=== PATIENT | male | born 1950 | race Caucasian/White ===

== ENCOUNTER 2016-12-08 05:57 | Inpatient (IN) | payer MEDICARE, BC ==
--- NOTE | ~2016-12-08 | OP ---
Record Of Operation [facility] [address] [place]. [address] NAME: DOLORES CALIXTO : 46 STATUS : ADM IN PAT#: [id number] AGE: 66 ADM/REG DATE : 12/08/16 MR#: [id number] REPORT SERV DATE: 12/08/16 DICTATED BY: RICK ARTEAGA DATE: 12/08/16 REPORT STATUS : Draft TRANSCRIBED BY: MODL DATE: 12/08/16 DATE OF PROCEDURE: 12/08/2016 PREOPERATIVE DIAGNOSIS: High-grade left carotid stenosis. POSTOPERATIVE DIAGNOSIS: High-grade left carotid stenosis. PROCEDURE: Left carotid endarterectomy. FELLOW: Koko. ANESTHESIA: General. COMPLICATIONS: Poor end point requiring on-table arteriogram and covered stent placement. BLOOD LOSS: 250. HISTORY: The patient is a 66-year-old male with high-grade left carotid stenosis. It was felt he would benefit from carotid endarterectomy. This was discussed in detail with the patient and , they expressed understanding and desired to proceed with the above procedure. DESCRIPTION OF PROCEDURE: The patient was taken to the operating room and placed in the supine position. He was given general anesthesia without complication, roll was placed under shoulders, head was turned to the right. His neck and chest were prepped and draped in sterile fashion. Incision was created on the anterior border sternocleidomastoid muscle taking care to be more than one fingerbreadth away from the angle of the mandible. Bovie cautery was used to dissect through subcutaneous tissue and platysma. Continued dissection was performed to identify the sternocleidomastoid muscle. Dissection was continued on the anterior border of it. The dissection was continued to identify the internal jugular vein. Dissection was continued on the anterior border of it. The common facial vein and branches were identified, freed circumferentially, ligated with silk ties, and divided. The vagus nerve was identified and preserved. The common carotid artery was identified, freed circumferentially, and isolated with a vessel loop. The patient was given 6000 units of heparin intravenously. Received another 2000 units every 45 minutes. Dissection was continued on the internal carotid artery beyond the area of disease. This was freed circumferentially and isolated with a vessel loop. The hypoglossal nerve was identified and preserved. Dissection was performed to the external carotid artery, which was freed circumferentially and isolated with a vessel loop. The superior thyroid artery was identified, and isolated with a vessel loop as well. After more than 3 minutes of heparinization, the internal carotid artery was controlled with a vessel loop followed by the common carotid artery and external carotid artery. An 11 blade was used to create an arteriotomy on the common carotid artery. This extended longitudinally onto the internal carotid artery. A 12 shunt was placed into the internal carotid artery once good backbleeding was noted, it was placed in the common carotid artery restoring flow to the brain. There was excessive backbleeding requiring placement of a shunt clamp. Record Of Operation [facility] [address] [place]. [address] NAME: DOLORES CALIXTO : 48 STATUS : ADM IN PAT#: [id number] AGE: 66 ADM/REG DATE : 12/08/16 MR#: [id number] REPORT SERV DATE: 12/08/16 DICTATED BY: RICK ARTEAGA DATE: 12/08/16 REPORT STATUS : Draft TRANSCRIBED BY: MODL DATE: 12/08/16 Endarterectomy was begun in a standard fashion with feathering of the proximal endpoint and eversion endarterectomy on the external carotid artery. Attempts were made to feather the endpoint on the internal carotid artery distally, however, the plaque was friable. This required dissection distally on the internal carotid artery multiple times in multiple extensions of the arteriotomy. In order to better visualization, the incision was extended and dissection performed to identify the digastric muscle. This was divided carefully by observing the hypoglossal nerve throughout its dissection to avoid injury. Even with this continued distal dissection, the endpoint on the internal could not be achieved. It was felt placement of a stent here would allow tacking down of the distal endpoint and then closure could be completed. A 5 x 50 Viabahn was placed in the distal portion and deployed, however, it was difficult to get adequate purchase and became dislodged. Of note, prior to this, part of the shunt had to be removed in order to get adequate access and the distal artery was controlled with a vascular clamp. When this was not successful, it was felt the next best option would be an end-to-end anastomosis with transposition of the external carotid artery. The external carotid artery was dissected distally, branches were ligated with silk ties and divided. It was then brought over to the internal carotid artery and beveled. Multiple attempts were made to sew the external carotid to the internal carotid artery, but due to the location as well as the extreme friability of the artery, this was not successful either. At this point, it was felt that another attempt at stent placement would be the best option. With the internal carotid artery clamped, the artery was accessed distal to the clamp with a micropuncture needle, wire passed easily. The needle was removed. Micropuncture dilator was placed. Arteriogram shows a patent internal carotid artery filling the intracranial carotid artery and branch vessels without evidence of thrombus or occlusion. There was a dissection in the more proximal internal carotid artery. A V18 wire was able to be passed proximally and a TrailBlazer catheter passed over it. Arteriogram was performed showing this to be within the true lumen of the artery and not within the dissection. The V18 wire was then replaced, 6-Kazakh sheath was placed, and a 5 x 100 Viabahn stent was then placed just beneath the curvature of the artery and deployed here without difficulty. There was good backbleeding from the covered stent, which was clamped with a profunda clamp. Attention was turned to the common carotid artery, which was controlled with a vascular clamp as well. This stent was then sewn end-to-end to the common carotid artery with running 6-0 Prolene suture. Prior to completion, the micropuncture catheter was placed at the anastomosis and arteriogram performed showing the stent to be widely patent to the distal portion and the distal endpoint was patent with good flow into the brain. There is an area of residual dissection, but no evidence of extravasation or thrombus. This was felt to be adequate result. The closure was completed after the internal carotid artery was back bled. The common carotid artery was flushed. The stent was copiously irrigated. Upon completion with flow restored, bleeding points were controlled with additional Prolene sutures. Doppler confirmed a normal internal carotid artery signal. The patient was given protamine to help with hemostasis and Fibrillar was placed over the artery as well. After approximately 10 minutes, hemostasis was felt to be adequate. Portions of the residual common carotid artery and internal carotid artery were then used to cover the majority of the stent at the incision portion of the wound with a running 5-0 Prolene suture. Once hemostasis was then assured, the incision was closed in a standard fashion with running 2-0 Vicryl deep and platysmal suture. The skin was closed with 4-0 Monocryl suture and Dermabond dressing applied. The patient tolerated the procedure well. Plan will be extubation in the operating room and if the patient is Record Of Operation [address] [place]. [address] NAME: DOLORES CALIXTO : 46 STATUS : ADM IN [facility]#: [id number] AGE: 66 ADM/REG DATE : 12/08/16 MR#: [id number] REPORT SERV DATE: 12/08/16 DICTATED BY: RICK ARTEAGA DATE: 12/08/16 REPORT STATUS : Draft TRANSCRIBED BY: MODMigel DATE: 12/08/16 neurologically intact, taken to recovery for continued care. CSJ/BRETT Rick Arteaga M.D. / [id number] CC: Rick Arteaga M.D.
--- NOTE | ~2016-12-08 | PUL ---
[id number] [place]. [address] NAME: DOLORES CALIXTO : 48 STATUS : ADM IN [facility]#: [id number] AGE: 66 ADM/REG DATE : 12/08/16 MR#: [id number] REPORT SERV DATE: 12/13/16 DICTATED BY: MONIQUE DUEÑAS DATE: 12/13/16 REPORT STATUS : Draft TRANSCRIBED BY: MODL DATE: 12/13/16 PULMONARY FUNCTION TEST Overnight Oximetry Report START DATE OF TESTIN12/12/2016 END DATE OF TESTIN12/13/2016 COMMENTS: Testing was conducted with the patient breathing room air. RESULTS: 1. Total valid sampling time 6 hours 18 minutes and 14 seconds. 2. Total time with an oxygen saturation less than 88%, 2 minutes and 4 seconds. 3. Total time with an oxygen saturation less than 90%, 5 minutes and 2 seconds. 4. Oxygen desaturation event index 22.5. IMPRESSION: There was no significant desaturation during this study conducted while the patient was breathing room air. Though the oxygen saturation remained above 88% for the most of the test, the oxygen desaturation event index was elevated suggestive of possible obstructive sleep apnea. Recommend formal sleep study to confirm if clinically indicated. PS/BRETT Monique Dueñas M.D. / [id number] CC: Roz Belle MD
--- NOTE | ~2016-12-08 | DS ---
Discharge Summary [facility] [address] [place]. [address] NAME: DOLORES CALIXTO : 46 STATUS : DIS IN PAT#: [id number] AGE: 66 ADM/REG DATE : 12/08/16 MR#: [id number] REPORT SERV DATE: 12/25/16 DICTATED BY: RICK ARTEAGA DATE: 12/24/16 REPORT STATUS : Draft TRANSCRIBED BY: MODMigel DATE: 12/24/16 Data Collection from hospitalization DISCHARGE DIAGNOSES: 1. High-grade left carotid stenosis, status post left carotid endarterectomy. 2. Cerebrovascular accident. 3. Paroxysmal atrial fibrillation. 4. Hypertension. 5. Former tobacco use. 6. History of colon cancer. CONSULTATIONS: 1. Dr. Makenna Garcia. 2. Dr. Kaley Hester. PROCEDURES PERFORMED: 1. Left carotid endarterectomy, 12/08/2016. 2. CT scan of the brain without contrast, 12/08/2016. 3. CTA of the neck/brain, 12/08/2016. 4. MRI of the brain with and without contrast and of the head without contrast, 12/09/2016. 5. Modified barium swallow study, 12/10/2016. 6. CT scan of the brain without contrast, 12/11/2016. 7. EEG dated 12/08/2016. PATHOLOGY: Artery, segment of left carotid artery - luminal narrowing secondary to atherosclerotic plaque; lymph node excision, left jugular chain (2) - benign lymph nodes with focal follicular hyperplasia. DISCHARGE MEDICATIONS: Cordarone 200 mg daily, Eliquis 5 mg twice a day, aspirin 81 mg daily, Plavix 75 mg daily, Advil 200 mg every four hours as needed, Prinivil 10 mg daily, MiraLAX powder one packet twice a day, Crestor 10 mg daily. CONDITION AT DISCHARGE: Stable. DISPOSITION: The patient was discharged home on a regular diet with activities as instructed. He would follow up with Dr. Makenna Garcia in three to four weeks following discharge. HOSPITAL COURSE: This is a 66-year-old man who has high-grade left carotid stenosis. It was felt that he would benefit from carotid endarterectomy. Treatment options were discussed and it was elected to proceed with surgical intervention. He was admitted to the hospital at this time for further evaluation and treatment. Upon admission, the patient was taken to the operating room where he underwent the above- mentioned procedures. He tolerated this well. There were no complications. Postoperatively, in the recovery room, it was noted by the nursing staff that the patient Discharge Summary [facility] [address] [place]. [address] NAME: DOLORES CALIXTO : 48 STATUS : DIS IN PAT#: [id number] AGE: 66 ADM/REG DATE : 12/08/16 MR#: [id number] REPORT SERV DATE: 12/25/16 DICTATED BY: RICK ARTEAGA DATE: 12/24/16 REPORT STATUS : Draft TRANSCRIBED BY: MODL DATE: 12/24/16 was not moving his right arm, he had some difficulty with his speech. Code stroke was called. The patient was taken for an emergent CT scan of the head which showed no evidence of acute changes. CTA of the head and neck showed evidence of carotid endarterectomy with 10 cm shunt which was placed above the area of stenosis extending from bifurcation upward. The appeared to be patent. No blockages were observed. Some vascular abnormality was noted in the right A1 segment with possible occlusion and absence of the posterior communicating artery. He was seen by Dr. Kaley Hester. The patient had fluctuating speech with possible expressive aphasia. His impression included transient ischemic attack versus CVA. The patient had fluctuating neurological deficits, crescendo impending stroke. It was recommended that blood pressure be maintained above 160 systolic and this is the pressure that appears to be at least minimal to maintain cerebral perfusion and improve the patient's neurological deficit. At blood pressure 180, the patient was able to raise his arm above his head and was conversing. We would follow stroke orders. Emergent EEG was performed to capture any subtle changes that were not detected on the CT. The patient does have asymmetry with mild increased intermittent slowing and sharp activity in the left anterior temporal region, intermittent bilaterally synchronous slowing was seen most likely secondary to drowsiness. The patient currently appeared to be alert, however, did have some difficulty swallowing. The following day, he still had some difficulty swallowing, but was not aspirating. His incisions were clean, dry, and intact. There was some left tongue deviation. He had complained of dysphagia and cough when swallowing. Plavix was being provided. Lipitor was increased. We would keep systolic blood pressure greater than 130 mmHg. Fasting lipid panel and hemoglobin A1c were going to be checked. MRI of the brain with and without contrast and of the head without contrast was performed. On 12/10/2016, a modified barium swallow study was performed. He had minimal left neck pain at the surgical site. He denied any visual or hearing deficits, weakness, or numbness. His biggest complaint was a dry mouth and difficulty swallowing and difficulty clearing his throat. Echocardiogram was negative. Ejection fraction was 60%. Plavix and statin were continued. The patient was being held n.p.o. The modified barium swallow study was reviewed. He was evaluated by Physical Therapy. The next day, he still had some swallowing complaints. The patient had persistent dysphagia. He was seen by Dr. Makenna Garcia regarding postop atrial fibrillation with rapid ventricular response in the setting of CVA. The patient did not have any chest pain or shortness of breath. He had a coughing episode and it was suspected that he may have aspirated when he coughed within minutes prior to the arrival of Dr. Garcia. He had not had any prior history of atrial fibrillation that he was aware of. It was felt that this was new onset paroxysmal atrial fibrillation. Telemetry was now demonstrating sinus rhythm. Aspirin was decreased. Plavix was continued. He felt if it was safe from a surgical standpoint that Eliquis should be started for primary stroke prevention. Amiodarone drip would be continued for 24 hours and then he would be changed to oral amiodarone. Lisinopril was continued as well as high-intensity statin therapy. A CT scan of the brain without contrast was performed. There was evidence for a subacute nonhemorrhagic infarction in the left occipital region by CT. On 12/12/2016, he had had aspiration overnight while supine. He still had difficulty swallowing. The head of his bed was kept elevated. His T-max was 99.2. Oral amiodarone continued. He had been placed on Eliquis. He remained in a sinus rhythm. The patient was educated about positioning when sleeping as he reports that he wakes up coughing. The next day, discharge planning was Discharge Summary [address] [place]. [address] NAME: DOLORES CALIXTO : 46 STATUS : DIS IN PAT#: [id number] AGE: 66 ADM/REG DATE : 12/08/16 MR#: [id number] REPORT SERV DATE: 12/25/16 DICTATED BY: RICK ARTEAGA DATE: 12/24/16 REPORT STATUS : Draft TRANSCRIBED BY: MODL DATE: 12/24/16 performed. Heart rate had improved on amiodarone, aspirin, Plavix, and Eliquis. Lipitor was continued. On 12/14/2016, he had had some nosebleed. His dysphagia remained stable. Aspirin was stopped. He seemed to be feeling better. He was eating better. He was passing flatus. Discharge instructions were given. Due to his improved and stable condition, he was discharged home with the above-stated instructions. Information collected by: Gia Eduardo I submit the above information as my discharge summary. TG/MODL Rick Arteaga M.D. / [id number] CC: Roz Belle MD Roza K. Adamczyk, MD Lisa Gail Carkner, M.D.
--- NOTE | ~2016-12-08 | CN ---
Consultation Report [facility] [address] [place]. [address] NAME: DOLORES CALIXTO : 46 STATUS : ADM IN [facility]#: [id number] AGE: 66 ADM/REG DATE : 12/08/16 MR#: [id number] REPORT SERV DATE: 12/08/16 DICTATED BY: KALEY HESTER DATE: 12/08/16 REPORT STATUS : Draft TRANSCRIBED BY: MODL DATE: 12/08/16 NEUROLOGICAL EVALUATION CODE STROKE DATE OF CONSULTATION: 12/08/2016 REASON FOR NEUROLOGICAL CONSULTATION: Acute onset of right-sided weakness, speech difficulty status post carotid endarterectomy 30 minutes prior to this consultation. HISTORY OF PRESENT ILLNESS: This is a 66-year-old white male with known history of high- grade left carotid artery stenosis, who is status post left carotid endarterectomy which was done today by Vascular Surgeon, Dr. Arteaga. While the patient was in the recover room, it was noted by the nursing staff that the patient was not moving his right arm, he was having difficulty with his speech. Code stroke was called. The patient was taken for an emergent CT scan of the head, which showed no evidence of acute changes. CTA of the head and neck showed evidence of carotid endarterectomy with 10 cm shunt which was placed above the area of stenosis extending from bifurcation upward. The stent appeared to be patent. No blockages were observed. Some vascular abnormality was noted in the right A1 segment with possible occlusion and absence of the posterior communicating artery. The full report is still pending. PAST MEDICAL HISTORY: Significant for hypertension, hypercholesterolemia. No prior history of CVA or TIA. ALLERGIES: NO KNOWN ALLERGIES. SOCIAL HISTORY: The patient denied smoking. Drinks alcohol occasionally. REVIEW OF SYSTEMS: Was not possible to obtain as the patient at fluctuating neuro status. From the patient's medical records, it was obtained that the patient had history of colon cancer in 2008 with colon resection for adenocarcinoma. He had not followed by chemotherapy. PHYSICAL EXAMINATION: GENERAL: The patient was in the postop setting. His blood pressure when the patient was initially seen was 134/62, pulse was 64, respirations 20. The patient appeared to be normocephalic status post left carotid endarterectomy. Postsurgical area appears clean. No blood oozing or any abnormalities noted. The incision appears to be clean. CHEST: Symmetrical. LUNGS: Clear to auscultation. HEART: Regular S1, S2. I did not appreciate any murmurs or rubs. ABDOMEN: Soft, nontender. There was no organomegaly. EXTREMITIES: Show no clubbing or cyanosis. There was no peripheral edema. Peripheral pulses were normal. NEUROLOGICAL: Mental status exam: The patient has fluctuating speech possible expressive Consultation Report [address] [place]. [address] NAME: DOLORES CALIXTO : 46 STATUS : ADM IN PAT#: [id number] AGE: 66 ADM/REG DATE : 12/08/16 MR#: [id number] REPORT SERV DATE: 12/08/16 DICTATED BY: KALEY HESTER DATE: 12/08/16 REPORT STATUS : Draft TRANSCRIBED BY: BRETT DATE: 12/08/16 aphasia, was speaking only half sentences. The patient was firstly out of operating room 30 minutes, probable some affects of anesthesia noted; however, could not exclude mild aphasia. Cranial nerve examination 2 through 12 appeared within normal range except for gaze preference to the left. The patient eyes crossed midline. Difficult to test upward or downward gaze. Pupils were 3 mm reactive to light and accommodation. There was no facial asymmetry and lower cranial nerves appeared intact. Tongue was midline. No atrophy or fibrillations noted. Motor exam: The patient's right arm was flaccid initially. The patient regain some strength distally in his hands; however, strength was estimated to be 3/5. The patient was not able to raise his right arm to command. His right leg strength was 4/5 and 4 minus over 5. Cerebellar exam: The patient could not perform on the right, on the left. Showed no evidence of ataxia. Sensory exam: Difficult to test them. May have been sensory neglect on the right. The patient's blood pressure rate increased to 169. The patient regain some strength in his right arm; however, still was not able to lift his arm. The patient was taken to CT of the head immediately per stroke protocol. As mentioned above, CT was negative. CTA as mentioned above. IMPRESSION: Transient ischemic attack versus CVA. The patient has fluctuating neurological deficits, crescendo impending stroke. Recommend for blood pressure to be maintained above 160 systolic and this is the pressure that appears to be at least minimal to maintain cerebral perfusion and improve the patient's neurological deficit. At blood pressure 180, the patient was able to raise his arm up above his head and was conversing. The patient is status post carotid endarterectomy, followup postsurgical orders, follow stroke orders. Emergent EEG was performed to capture any subtle changes that were not detected on the CT. Indeed the patient does have asymmetry with mild increased of slow intermittent slowing and sharp activity in the left anterior temporal region. Intermittent bilaterally synchronous slowing was seen most likely secondary to drowsiness. The patient currently appears to be alert; however, has had some difficulty swallowing. Would monitor patient's neurological status. NIH stroke scale. Follow as per stroke orders protocol. Total time 115 minutes of critical care visit. Neurology will follow the patient's progress with you. Thank you for allowing us to participate in this patient's care. STEPHEN/BRETT Kaley Hester MD / [id number] CC: Osman Arteaga M.D.
--- NOTE | ~2016-12-08 | CN ---
Consultation Report [facility] [address] [place]. [address] NAME: DOLORES CALIXTO : 46 STATUS : ADM IN [facility]#: [id number] AGE: 66 ADM/REG DATE : 12/08/16 MR#: [id number] REPORT SERV DATE: 12/11/16 DICTATED BY: DATE: REPORT STATUS : Draft TRANSCRIBED BY: MODL DATE: 12/11/16 CONSULTATION REPORT DATE OF CONSULTATION: 12/11/2016 CHIEF COMPLAINT/REASON FOR CONSULT: Postop atrial fibrillation with rapid ventricular response in the setting of CVA. HISTORY OF PRESENT ILLNESS: Mr. Dolores Calixto is a very pleasant 66-year-old gentleman who was admitted to hospital on 12/08/2016 for a left carotid endarterectomy. Postoperatively, the patient had symptoms of a possible stroke. Indeed, he was diagnosed with embolic and hypotensive CVA. Postoperatively, the patient also was identified to have atrial fibrillation with rapid ventricular response, but has promptly converted back to normal rhythm. The patient does not have any chest pain or shortness of breath. He did have a coughing episode and suspected he may have aspirated when he coughed within minutes prior to my arrival. He has not had any prior history of atrial fibrillation that he is aware of. He has a known history of hypertension and hyperlipidemia, controlled outpatient on statin therapy. ALLERGIES: NO KNOWN DRUG ALLERGIES. CURRENT INPATIENT MEDICATIONS: Include: 1. Aspirin, reduced to 81 mg p.o. daily. 2. Lipitor 80 mg p.o. daily. 3. Plavix 75 mg p.o. daily. 4. Lisinopril 5 mg p.o. daily. PAST MEDICAL HISTORY: 1. Hypertension. 2. Hyperlipidemia, on Crestor, outpatient. 3. History of carotid stenosis, status post left carotid endarterectomy on 12/08/2016. 4. History of colon cancer. SOCIAL HISTORY: The patient is with two children. He smoked for about two years. He does drink a small amount of wine once per year. He does not use extracurricular drugs. FAMILY HISTORY: His mother had a history of AFib. His father had a history of emphysema. His son has a history of Oygwk-Joudefiko-Zsafy. Another son has a history of diabetes since the age of 4. REVIEW OF SYSTEMS: All systems reviewed and negative except for dictated in HPI. Consultation Report [facility] [address] [place]. [address] NAME: DOLORES CALIXTO : 46 STATUS : ADM IN [facility]#: [id number] AGE: 66 ADM/REG DATE : 12/08/16 MR#: [id number] REPORT SERV DATE: 12/11/16 DICTATED BY: DATE: REPORT STATUS : Draft TRANSCRIBED BY: MODL DATE: 12/11/16 PHYSICAL EXAMINATION: VITAL SIGNS: Blood pressures ranged between 162-181/70-77, pulse 67 to 78, respirations 20, and oxygen saturations 92% on room air. GENERAL: Mr. Calixto is a 66-year-old gentleman. He is sitting at the side of the bed after a coughing episode. NECK: I could not appreciate carotid bruits on the right. There appears to be a hematoma over the surgical incision on the left. HEART: Regular rate and rhythm. Normal S1 and S2. I could not auscultate murmurs, rubs, or gallops. LUNGS: There are coarse breath sounds in the posterior frey bilaterally. It is clear anteriorly. ABDOMEN: Soft and nontender. EXTREMITIES: Warm and well perfused. There is no pitting edema. NEUROLOGIC: I could not appreciate focal neurologic deficit. REVIEW OF TEST RECORDS AND MEDICAL DECISION MAKING: Potassium 4.1, BUN 9, creatinine 0.73, and glucose 126. Hemoglobin 12.9, hematocrit 38, and platelet count is 149. Echocardiogram performed on 12/09/2016 demonstrated normal left ventricular systolic function with diastolic dysfunction noted. An EKG performed this morning at 0943 hours demonstrated atrial fibrillation with rapid ventricular response. Telemetry now demonstrates sinus rhythm. IMPRESSION, REPORT, AND PLAN: 1. Paroxysmal atrial fibrillation, new onset, now in normal sinus rhythm. 2. Embolic cerebrovascular accident. 3. Hypertension. 4. High-grade left carotid stenosis, status post endarterectomy. 5. Hyperlipidemia. RECOMMENDATIONS: 1. I agree with decreasing aspirin 81 mg per day and continue with Plavix. 2. If it is safe from a surgical standpoint, would start Eliquis for primary stroke prevention, 5 mg twice per day. 3. Continue amiodarone drip for 24 hours and then change to amiodarone 400 mg p.o. b.i.d. 4. Continue the patient's lisinopril. 5. Continue high-intensity statin therapy. 6. Additional recommendations pending clinical course. LGCarmen/MODL Makenna Garcia M.D. Consultation Report [address] [place]. [address] NAME: CALIXTODOLORES RICO : 46 STATUS : ADM IN PAT#: [id number] AGE: 66 ADM/REG DATE : 12/08/16 MR#: [id number] REPORT SERV DATE: 12/11/16 DICTATED BY: DATE: REPORT STATUS : Draft TRANSCRIBED BY: RENEL DATE: 12/11/16 / [id number] CC: Osman Artegaa M.D.
--- NOTE | ~2016-12-08 | EEG ---
Electroencephalogram [facility] [id number] [place]. [address] NAME: DOLORES CALIXTO : 46 STATUS : DIS IN PAT#: [id number] AGE: 66 ADM/REG DATE : 12/08/16 MR#: [id number] REPORT SERV DATE: 12/23/16 DICTATED BY: KALEY HESTER DATE: 12/23/16 REPORT STATUS : Draft TRANSCRIBED BY: MODL DATE: 12/23/16 ELECTROENCEPHALOGRAPHY REPORT. LOCATION: CVICU bed 11. REQUESTING PHYSICIAN: Osman Arteaga M.D. INTERPRETING PHYSICIAN: Kaley Hester MD. AGE: 66. REASON FOR EEG: Cerebrovascular accident. Poor responsiveness. 23 surface electrodes, 10-20 international placement was used. The patient was noted to be awake and drowsy throughout the study. The background activity consisted of moderate voltage, relatively well-organized 8 to 9 cycles per second located in the posterior head regions. Large amount of low-voltage beta range activity was also seen scattered throughout. During drowsiness increase of slower frequencies was noted in the left frontal temporal region. No paroxysmal epileptiform activity was seen during this study. 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 IMPRESSION: MILDLY ABNORMAL EEG CHARACTERIZED BY PRESENCE OF INCREASE OF SLOWER FREQUENCIES IN THE LEFT FRONTAL TEMPORAL REGION DURING DROWSINESS. OVERALL THE BACKGROUND ACTIVITY WAS WITHIN NORMAL RANGE. NO PAROXYSMAL OR EPILEPTIFORM ACTIVITY WAS SEEN DURING THIS STUDY. CLINICAL CORRELATION IS RECOMMENDED. STEPHEN/BRETT Kaley Hester MD / [id number] CC: Roz Belle MD
[~2016-12-08 05:57] MED LIST: ADVIL PO; ASAB PO; CRESTOR10 PO; PRIN10 PO
[2016-12-08 13:58] LABS: BE (BASE EXCESS) -3.5 MEQ/L (0 +/- 2.5); CARBOXYHEMOGLOBIN 0.9 % (0-3); HCO3 (ACTUAL BICARBONATE) 20.9 MEQ/L (23-27); HEMOBLOGIN CONTENT 14.3 G/DL (14-18); INSTRUMENT SERIAL # 11843; METHEMOGLOBIN 0.5 % (0-3); O2 CONTENT 19.5 VOL% (18-24); PCO2 (CO2 TENSION) 36 MMHG (35-45); PO2 (O2 TENSION) 107 MMHG (79-93); SAMPLE Arterial; pH 7.38 (7.37-7.43)
[2016-12-08 15:30] LABS: CREATININE 0.7 MG/DL (0.70-1.30)
[2016-12-09 04:42] LABS: BASOPHILS 0.1 %; BASOPHILS ABSOLUTE 0.01 10/3/uL (0.0-0.16); EOSINOPHILS 0 %; HEMATOCRIT 36.5 % (40.0-51.0); HEMOGLOBIN 12.6 g/dL (13.6-17.8); IMMATURE GRANULOCYTES 0.3 %; IMMATURE GRANULOCYTES ABSOLUTE 0.03 10/3/uL (0.0-0.11); LYMPHOCYTES 5.5 %; LYMPHOCYTES ABSOLUTE 0.62 10/3/uL (0.67-4.30); MEAN CORPUS HGB CONC 34.5 g/dL (32.0-36.0); MEAN CORPUSCULAR HEMOGLOB 30.3 pg (26.0-34.0); MEAN CORPUSCULAR VOLUME 87.7 fL (80-100); MEAN PLATELET VOLUME 8.8 fL (9.2-13.0); MONOCYTES 7.8 %; MONOCYTES ABSOLUTE 0.89 10/3/uL (0.21-1.20); NEUTROPHILS 86.3 %; NEUTROPHILS ABSOLUTE 9.79 10/3/uL (2.02-8.40); RBC DISTRIBUTION WIDTH 13.3 % (12.0-16.0); RED CELL COUNT 4.16 10/6/uL (4.7-6.1)
[2016-12-09 04:43] LABS: MANUAL DIFF NO %; PLATELET COUNT 154 10/3/uL (150-400); WHITE BLOOD CELLS 11.3 10/3/uL (4.5-10.5)
[2016-12-09 05:04] LABS: A/G RATIO 1.1 (0.7-1.9); ALKALINE PHOSPHATASE 81 U/L (45-117); BUN (BLOOD UREA NITROGEN) 11 MG/DL (6-23); CALCIUM, SERUM 8.9 MG/DL (8.5-10.4); CHLORIDE, SERUM 107 MMOL/L (96-112); CO2 (CARBON DIOXIDE) 26 MMOL/L (24-34); CREATININE 0.82 MG/DL (0.70-1.30); GFR AFRICAN AMERICAN 105 ML/MIN (>=60); GFR NON AFRICAN AMERICAN 91 ML/MIN (>=60); GLUCOSE, SERUM 145 MG/DL (60-99); POTASSIUM, SERUM 3.8 MMOL/L (3.5-5.3); SGOT(AST) 20 U/L (5-40); SGPT(ALT) 29 U/L (5-65); SODIUM, SERUM 142 MMOL/L (135-148); TOTAL BILIRUBIN 0.3 MG/DL (0-1.2); TOTAL PROTEIN 6.2 G/DL (6.0-8.5)
[2016-12-09 05:06] LABS: ALBUMIN 3.2 G/DL (3.5-5.0)
[2016-12-10 03:45] LABS: BASOPHILS 0.1 %; BASOPHILS ABSOLUTE 0.01 10/3/uL (0.0-0.16); EOSINOPHILS 0.4 %; EOSINOPHILS ABSOLUTE 0.04 10/3/uL (0.0-0.53); HEMOGLOBIN 12.9 g/dL (13.6-17.8); IMMATURE GRANULOCYTES 0.1 %; IMMATURE GRANULOCYTES ABSOLUTE 0.01 10/3/uL (0.0-0.11); LYMPHOCYTES 7.9 %; MEAN CORPUS HGB CONC 33.9 g/dL (32.0-36.0); MEAN CORPUSCULAR HEMOGLOB 30.1 pg (26.0-34.0); MEAN CORPUSCULAR VOLUME 88.6 fL (80-100); MEAN PLATELET VOLUME 8.7 fL (9.2-13.0); MONOCYTES 8.7 %; MONOCYTES ABSOLUTE 0.88 10/3/uL (0.21-1.20); NEUTROPHILS 82.8 %; NEUTROPHILS ABSOLUTE 8.42 10/3/uL (2.02-8.40); PLATELET COUNT 149 10/3/uL (150-400); RBC DISTRIBUTION WIDTH 13.3 % (12.0-16.0); RED CELL COUNT 4.29 10/6/uL (4.7-6.1); WHITE BLOOD CELLS 10.2 10/3/uL (4.5-10.5)
[2016-12-10 03:47] LABS: MANUAL DIFF NO %
[2016-12-10 03:59] LABS: ALBUMIN 3.4 G/DL (3.5-5.0); ALKALINE PHOSPHATASE 84 U/L (45-117); BUN (BLOOD UREA NITROGEN) 9 MG/DL (6-23); CALCIUM, SERUM 9.1 MG/DL (8.5-10.4); CHLORIDE, SERUM 104 MMOL/L (96-112); CHOL/HDL RATIO(NOT ORDER) 2.8 (0-5); CHOLESTEROL 142 MG/DL (< 200); CO2 (CARBON DIOXIDE) 30 MMOL/L (24-34); CREATININE 0.73 MG/DL (0.70-1.30); GFR AFRICAN AMERICAN 110 ML/MIN (>=60); GFR NON AFRICAN AMERICAN 95 ML/MIN (>=60); GLOBULIN 3.3 G/DL (2.5-4.1); GLUCOSE, SERUM 126 MG/DL (60-99); HDL CHOLESTEROL 50 MG/DL (> 39); LDL CHOLESTEROL 63 MG/DL (< 130); NON-HDL CHOLESTEROL 92 MG/DL (< 160); POTASSIUM, SERUM 4.1 MMOL/L (3.5-5.3); SGOT(AST) 20 U/L (5-40); SGPT(ALT) 25 U/L (5-65); SODIUM, SERUM 142 MMOL/L (135-148); TOTAL BILIRUBIN 0.4 MG/DL (0-1.2); TOTAL PROTEIN 6.7 G/DL (6.0-8.5); TRIGLYCERIDE 149 MG/DL (< 150)
[2016-12-11 10:40] LABS: BASOPHILS 0.2 %; BASOPHILS ABSOLUTE 0.02 10/3/uL (0.0-0.16); EOSINOPHILS 1.3 %; EOSINOPHILS ABSOLUTE 0.11 10/3/uL (0.0-0.53); HEMATOCRIT 38.2 % (40.0-51.0); HEMOGLOBIN 13.2 g/dL (13.6-17.8); IMMATURE GRANULOCYTES 0.2 %; IMMATURE GRANULOCYTES ABSOLUTE 0.02 10/3/uL (0.0-0.11); LYMPHOCYTES ABSOLUTE 0.91 10/3/uL (0.67-4.30); MANUAL DIFF NO %; MEAN CORPUS HGB CONC 34.6 g/dL (32.0-36.0); MEAN CORPUSCULAR HEMOGLOB 30.3 pg (26.0-34.0); MEAN CORPUSCULAR VOLUME 87.6 fL (80-100); MEAN PLATELET VOLUME 8.9 fL (9.2-13.0); MONOCYTES 9.8 %; MONOCYTES ABSOLUTE 0.81 10/3/uL (0.21-1.20); NEUTROPHILS 77.5 %; NEUTROPHILS ABSOLUTE 6.38 10/3/uL (2.02-8.40); PLATELET COUNT 161 10/3/uL (150-400); RBC DISTRIBUTION WIDTH 13.3 % (12.0-16.0); RED CELL COUNT 4.36 10/6/uL (4.7-6.1); WHITE BLOOD CELLS 8.3 10/3/uL (4.5-10.5)
[2016-12-11 10:55] LABS: BUN (BLOOD UREA NITROGEN) 12 MG/DL (6-23); CALCIUM, SERUM 9.3 MG/DL (8.5-10.4); CHLORIDE, SERUM 105 MMOL/L (96-112); CO2 (CARBON DIOXIDE) 31 MMOL/L (24-34); CREATININE 0.86 MG/DL (0.70-1.30); GFR AFRICAN AMERICAN 103 ML/MIN (>=60); GFR NON AFRICAN AMERICAN 89 ML/MIN (>=60); GLUCOSE, SERUM 121 MG/DL (60-99); POTASSIUM, SERUM 3.6 MMOL/L (3.5-5.3); SODIUM, SERUM 142 MMOL/L (135-148); TROPONIN I <0.02 NG/ML (<0.05)
[2016-12-12 12:40] LABS: BUN (BLOOD UREA NITROGEN) 11 MG/DL (6-23); CALCIUM, SERUM 9.6 MG/DL (8.5-10.4); CHLORIDE, SERUM 104 MMOL/L (96-112); CO2 (CARBON DIOXIDE) 32 MMOL/L (24-34); CREATININE 0.83 MG/DL (0.70-1.30); FREE T4 1.47 NG/DL (0.76-1.46); GFR AFRICAN AMERICAN 105 ML/MIN (>=60); GFR NON AFRICAN AMERICAN 90 ML/MIN (>=60); GLUCOSE, SERUM 100 MG/DL (60-99); POTASSIUM, SERUM 3.5 MMOL/L (3.5-5.3); SODIUM, SERUM 140 MMOL/L (135-148); ULTRASENSITIVE TSH 0.516 MCIU/ML (0.358-3.740)
[2016-12-13 06:31] LABS: BUN (BLOOD UREA NITROGEN) 8 MG/DL (6-23); CALCIUM, SERUM 9.3 MG/DL (8.5-10.4); CHLORIDE, SERUM 101 MMOL/L (96-112); CO2 (CARBON DIOXIDE) 32 MMOL/L (24-34); CREATININE 0.91 MG/DL (0.70-1.30); GFR AFRICAN AMERICAN 100 ML/MIN (>=60); GFR NON AFRICAN AMERICAN 86 ML/MIN (>=60); GLUCOSE, SERUM 110 MG/DL (60-99); POTASSIUM, SERUM 3.7 MMOL/L (3.5-5.3); SODIUM, SERUM 139 MMOL/L (135-148)
[2016-12-14] MEDS ORDERED: ELIQUIS 5 MG TAB5 MG PO (13:41)
[2016-12-14] MEDS ORDERED: MIRALAX POWDER1 PKT PO (13:43)
[2016-12-14] MEDS ORDERED: CORDARONE PO (13:43)
[2016-12-14] MEDS ORDERED: PLAVIX PO (13:44)
== END 2016-12-14 14:45 | disposition home or self-care (01) | DRG 38 ==
LOC: SDC/OF 05:57 → PACU 13:06 → CVICU 15:21 → 2SO 12-10 11:46
PROVIDERS: Nurse Practitioner Family; Psychiatry & Neurology Neurology; Surgery
PROC: 037J0DZ Dilation of Left Common Carotid Artery with Intraluminal Device, Open Approach (ICD-10-PCS; 2016-12-08)
PROC: 03CN0ZZ Extirpation of Matter from Left External Carotid Artery, Open Approach (ICD-10-PCS; principal; 2016-12-08 08:15)
DX: I65.22 Occlusion and stenosis of left carotid artery (principal); I97.89 Other postprocedural complications and disorders of the circulatory system, not elsewhere classified; I10 Essential (primary) hypertension; E78.00 Pure hypercholesterolemia, unspecified; G45.9 Transient cerebral ischemic attack, unspecified; Z85.038 Personal history of other malignant neoplasm of large intestine; Z87.891 Personal history of nicotine dependence; E78.5 Hyperlipidemia, unspecified
CPT/HCPCS: 35301; 36415; 70450; 70496; 70498; 70544; 70553; 74230; 80048; 80053; 80061; 82330; 82803; 82805; 82947; 82962; 83036; 83735; 84132; 84295; 84439; 84443; 84484; 85014; 85025; 86850; 86900; 86901; 87641; 88304; 88307; 88311; 92526-GN; 92610-GN; 92611-GN; 93005; 94762; 95816; 95819; 97110-GO; 97110-GP; 97112-GO; 97116-GP; 97161-GP; 97165-GO; 97530-GO; A9270-GY; A9577; C1769; C1874; C1894; C8929; G8978-CK-GP; G8979-CJ-GP; G8987-CK-GO; G8988-CJ-GO; G8996-CL-GN; G8996-CN-GN; G8997-CL-GN; G8997-CN-GN; G8998-CL-GN; G8998-CN-GN; J0282; J0330; J0690; J2370; J2405; J2720; J3010; Q9957; Q9967